=== PATIENT | male | born 1985 | race Caucasian/White ===

== ENCOUNTER 2018-12-22 04:05 | Emergency (ER) | payer OTHER, SELFPAY ==
[2018-12-22] MEDS ORDERED: Acetaminophen 500 MG TAB ONE (04:38)
[2018-12-22] MEDS ORDERED: Enoxaparin Sodium 40 MG/0.4 ML SYRINGE ONE (07:12)
[2018-12-22] MEDS ORDERED: Enoxaparin Sodium 100 MG/ML SYRINGE ONE (07:12)
[2018-12-22] MEDS ORDERED: Enoxaparin Sodium 80 MG/0.8 ML SYRINGE ONE (07:14)
--- NOTE | 2018-12-22 07:47 | ULT ---
PRELIMINARY REPORT/[facility]/EMERGENCY AFTER HOURS PROCEDURE: EXAM: US Duplex Right Lower Extremity Veins, Limited EXAM DATE/TIME: 12/22/2018 5:26 AM CLINICAL HISTORY: 32 years old, male; Other: RT lower leg pain redness, HX of "lots of dvts"; Patient HX: Very limited study due to PT body habitus TECHNIQUE: Imaging protocol: Real-time Duplex ultrasound of the Right Lower Extremity with 2-D stock scale, color Doppler flow and spectral waveform analysis. Limited exam was focused on the right lower extremity veins. COMPARISON: No relevant prior studies available. FINDINGS: Limitations: Evaluation limited by patient body habitus. Right deep veins: There is RIGHT femoral vein and popliteal vein partial thrombosis with presence of color flow and venous augmentation. Flow is noted within the profunda femoris vein. Distal femoral vein posterior tibial veins are not well seen. Right superficial veins: Saphenofemoral junction is patent without thrombus. Flow is noted within the greater saphenous vein. Soft tissues: Unremarkable. IMPRESSION: Partially occlusive DVT noted within the RIGHT lower extremity involving the femoral vein, popliteal vein, not well-visualized due to patient body habitus. Thank you for allowing us to participate in the care of your patient. Dictated and Authenticated by: Bassem Whalen MD 12/22/2018 6:10 AM Central Time ([place] & [place]) FINAL REPORT Final interpretation Right lower extremity venous Doppler ultrasound: 12/22/2018 COMPARISON: None HISTORY: Right lower extremity swelling, pain, history of "lots of DVTs". TECHNIQUE: Multiplanar grayscale sonographic imaging of the venous structures of right lower extremit y obtained with color flow and spectral analysis. FINDINGS: Evaluation of the venous structures of the right lower extremity significantly limited on t he basis of patient body habitus. The mid femoral vein and the distal femoral vein cannot be discretely visualized secondary to body habitus. The proximal aspect of the popliteal vein does not a ppear to fully compress. The right common femoral vein also does not appear to fully compress. Right greater saphenous vein appears patent. Distal right posterior tibial vein is patent. Proximal right posterior tibial vein cannot be visualiz ed. Right anterior tibial vein appears patent. There is a questionable linear nonocclusive filling defect seen within the profunda femoral vein as well. Evaluation is quite limited secondary to difficulty visualizing the venous structures. IMPRESSION: There is evidence of DVT within the femoral vein, common femoral vein, profunda femoral v ein, and popliteal vein, age indeterminant. These findings could be chronic in nature. Detailed assessment is limited secondary to body habitus. A degree of acute DVT is impossible to exclude on e basis of this exam, particularly with no prior imaging available Code QA Transcribed Date/Time: 12/22/2018 8:00 AM
--- NOTE | 2018-12-22 09:19 | RAD ---
2 VIEWS RIGHT FORELEG: Date: 12/22/18 PROVIDED CLINICAL HISTORY: Soft tissue ulceration. FINDINGS: There is diffuse reticulation of the regional visualized subcutaneous adipose tissues. There is no ev idence for soft tissue gas. No evidence for fracture or other acute osseous abnormality. If there is persistent clinical concern, conservative management and follow-up imaging are advised. IMPRESSION: As above. POS: OFF
== END 2018-12-22 07:28 | disposition home or self-care (01) ==
LOC: ERS 04:05
DX: I82.411 Acute embolism and thrombosis of right femoral vein (principal); L97.919 Non-pressure chronic ulcer of unspecified part of right lower leg with unspecified severity; L03.115 Cellulitis of right lower limb; F84.0 Autistic disorder; Z87.891 Personal history of nicotine dependence; Z79.01 Long term (current) use of anticoagulants; Z79.899 Other long term (current) drug therapy
CPT/HCPCS: 96372; J1650